=== PATIENT | male | born 1965 | race Caucasian/White ===

== ENCOUNTER 2020-02-07 07:33 | Emergency (ER) | payer OTHER, SELFPAY ==
[~2020-02-07] VITALS: Ht 170.2 cm; Wt 90.7 kg
--- NOTE | 2020-02-07 07:33 | NUR ---
Placed in room 1. Placed on surveillance system monitor, blood pressure machine and pulse oximeter. To gown for exam. Side rails up. Report given to EARLENE Ramachandran.
--- NOTE | 2020-02-07 07:40 | NUR ---
pt arrives via [facility] after a syncopal episode at home. Pt states that he was using the restroom when he "passed out". Pt reports having diarrhea for one week along w/ n/v. Pt also reports that he was tested for Covid yesterday. VSS. EKG done and given to
[2020-02-07 07:41] VITALS: BP_SYST 122
--- NOTE | 2020-02-07 07:45 | NUR ---
ekg done and given to
[2020-02-07] MEDS ORDERED: NACL 0.9% 1,000 ML IV ONE (08:00)
--- NOTE | 2020-02-07 08:00 | NUR ---
x-ray at the bedside
--- NOTE | 2020-02-07 08:11 | NUR ---
pt is getting labs drawn at the bedside
[2020-02-07 08:18] LABS: BASOPHILS % (AUTO) 0.8 % (0.0-2.0); HEMATOCRIT 47.7 % (36-54); HEMOGLOBIN 16.5 g/dL (14.0-18.0); LYMPHOCYTES # (AUTO) 0.7 K/uL (1.0-5.5); LYMPHOCYTES % (AUTO) 19.6 % (20.5-51.5); MEAN CORPUSCULAR HEMOGLOBIN 32 pg (27-31); MEAN CORPUSCULAR HGB CONC 35 % (32-36); MEAN CORPUSCULAR VOLUME 91 fL (79.0-98.0); MONOCYTES # (AUTO) 0.4 K/uL (0.0-1.0); MONOCYTES % (AUTO) 11.1 % (1.7-9.3); NEUTROPHILS # (AUTO) 2.5 K/uL (1.8-7.7); NEUTROPHILS % (AUTO) 68.5 % (40.0-70.0); PLATELET COUNT (AUTO) 122 K/uL (130-430); RED BLOOD CELL COUNT(AUTO) 5.24 MIL/uL (4.2-6.2); RED CELL DISTRIBUTION WIDTH 12.8 % (9.0-15.0); WHITE BLOOD COUNT (AUTO) 3.6 K/uL (4.8-10.8)
[2020-02-07 08:32] LABS: CALCIUM 8.4 mg/dL (8.4-11.0); CREATININE 0.94 mg/dL (0.55-1.30); POTASSIUM 3.6 mmol/L (3.5-5.1)
[2020-02-07 08:46] LABS: ALBUMIN 3.5 g/dL (3.4-4.8); TOTAL BILIRUBIN 0.5 mg/dL (0.0-1.0)
[2020-02-07 09:15] VITALS: BP_SYST 122
--- NOTE | 2020-02-07 10:00 | NUR ---
pt dc'd at this time.
== END 2020-02-07 09:15 | disposition home or self-care (01) ==
LOC: SED 07:33
DX: R55 Syncope and collapse (principal); E11.9 Type 2 diabetes mellitus without complications
CPT/HCPCS: 71045; 80053; 82550; 82962; 83880; 84484; 85025; 93005; 96360; 99285; J7030; 36415